=== PATIENT | female | born 1955 | race Caucasian/White ===

== ENCOUNTER 2019-07-07 22:50 | Inpatient (IN) | payer OTHER ==
[~2019-07-07] VITALS: Ht 157.5 cm; Wt 88.5 kg
[2019-07-07 23:10] VITALS: BP 159/90
--- NOTE | 2019-07-07 23:10 | NUR ---
TO BED # 01 AMBULATORY
[2019-07-07] MEDS ORDERED: NACL 0.9% 1,000 ML IV ONE (23:50)
[2019-07-07] MEDS ORDERED: MORPHINE SULFATE 4 MG/ML SYR IVP ONE (23:50)
[2019-07-07] MEDS ORDERED: ONDANSETRON 4 MG/2 ML VIAL IVP ONE (23:50)
--- NOTE | 2019-07-07 23:55 | NUR ---
PT TAKEN TO CT
--- NOTE | 2019-07-08 00:20 | NUR ---
PT BACK FROM CT
[2019-07-08 00:25] LABS: APPEARANCE,URINE HAZY (CLEAR); BILIRUBIN,URINE 1+ (NEGATIVE); BLOOD, URINE NEGATIVE (NEGATIVE); COLOR,URINE YELLOW (YELLOW); LEUKOCYTE ESTERASE ,URINE NEGATIVE (NEGATIVE); NITRITE, URINE POSITIVE (NEGATIVE); UGLUCOSE 3+ (NEGATIVE)
[2019-07-08 00:25] LABS: BASOPHILS # (AUTO) 0.1 K/uL (0.00-0.22); BASOPHILS % (AUTO) 0.5 % (0.0-2.0); EOSINOPHILS # (AUTO) 0.1 K/uL (0-0.4); EOSINOPHILS % (AUTO) 0.6 % (0.0-4.0); HEMATOCRIT 42.1 % (36-48); HEMOGLOBIN 14.4 g/dL (12.0-16.0); LYMPHOCYTES % (AUTO) 17.9 % (20.5-51.1); MEAN CORPUSCULAR HEMOGLOBIN 31 pg (27-31); MEAN CORPUSCULAR HGB CONC 34 g/dL (33-37); MEAN CORPUSCULAR VOLUME 90.6 fL (80-94); MONOCYTES # (AUTO) 0.4 K/uL (0.8-1.0); MONOCYTES % (AUTO) 3.4 % (1.7-9.3); NEUTROPHILS # (AUTO) 8.4 K/uL (1.8-7.7); NEUTROPHILS % (AUTO) 77.6 % (42.2-75.2); PLATELET COUNT (AUTO) 268 K/uL (140-450); RED BLOOD CELL COUNT(AUTO) 4.65 MIL/uL (4.20-5.40); RED CELL DISTRIBUTION WIDTH 12.9 % (11.6-13.7); WHITE BLOOD COUNT (AUTO) 10.9 K/uL (4.8-10.8)
--- NOTE | 2019-07-08 00:25 | NUR ---
63/F PRESENTS TO ED, C/O PRESSURE-LIKE BL UPPER ABD PAIN, X3 DAYS WORSENING TODAY. REPORTS N/V X8 TODAY. DENIES CHANGES IN BM OR FEVER. PT AWAKE AND ALERT, SKIN NORMAL COLOR WARM AND DRY, RR EVEN AND UNLABORED. LUNG SOUNDS CLEAR BL. HR EVEN AND REGULAR. BS ACTIVE X4, ABD SOFT ROUND TENDER ON UPPER ABD ONLY. HX DM, HLD, GERD, CHOLECYSTECTOMY DENIES RX
[2019-07-08 00:35] LABS: RBC,URINE 0-5 /HPF (0-5)
[2019-07-08 00:36] LABS: ANION GAP 15.4 (8-16); CARBON DIOXIDE 27.8 mmol/L (21-32); CREATININE 0.8 mg/dL (0.6-1.3); POTASSIUM 4.2 mmol/L (3.5-5.1)
[2019-07-08 00:41] LABS: ALBUMIN 4.1 g/dL (3.4-5.0)
--- NOTE | 2019-07-08 01:00 | NUR ---
PT STATES PAIN RELIEF AND DENIES NAUSEA. VSS. WILL CONTINUE TO MONITOR.
[2019-07-08] MEDS ORDERED: cefTRIAXone 1,000 MG VIAL ONE (01:41)
--- NOTE | 2019-07-08 02:00 | NUR ---
PT RESTING IN BED WITH EYES CLOSED, EASILY ARROUSABLE. WILL CONTINUE TO MONITOR.
--- NOTE | 2019-07-08 02:35 | NUR ---
RECEIVED BEDSIDE REPORT FROM STEPHANIE WALLACE. PT IS AAOX4. RESPIRATIONS ARE EQUAL AND UNLABORED. LUNG SOUNDS ARE CLEAR. SKIN IS INTACT. C/C ABD PAIN X1 DAY. N/V X2 DAYS. IV ON L AC 20G. PT COMING FROM HOME IS AMBULATORY. ORDER TO KEEP NPO. WILL GIVE ICE CHIPS PER REQUEST. MRSA SWAB OBTAINED. DX OBSTRUCTIVE JAUNDICE. NO EDEMA NOTED. RECEIVED ROCEPHIN FOR UTI. IVF PER ORDERS. VS: 116/66 HR 81 97%RA 97.6 RR 16 PAIN TOLERABLE. ORIENTED PT TO ROOM,STAFF,VISITING HOURS. CALL LIGHT IS WITHIN REACH. WILL CONTINUE TO MONITOR.
--- NOTE | 2019-07-08 02:40 | NUR ---
Patient will be admitted to care of DR. PARHAM. Admited to MED/SURG. Will go to [id number]. Belongings list completed. Report to MADISON LENNON.
--- NOTE | 2019-07-08 02:40 | NUR ---
TRANSFER OF CARE AND REPORT GIVEN TO MADISON LENONN
[2019-07-08] MEDS ORDERED: METF500T PO (02:58)
[2019-07-08 03:00] VITALS: BP 116/66
[2019-07-08] MEDS ORDERED: LEVO0.114 PO (03:00)
[2019-07-08] MEDS ORDERED: NOVR SUBQ (03:01)
[2019-07-08] MEDS ORDERED: SLIDE SUBQ (03:01)
--- NOTE | 2019-07-08 03:10 | NUR ---
DR YOUNGER IS AT BEDSIDE EXPLAINING POC. NO S/S OF DISTRESS. CALL LIGHT IS WITHIN REACH.
[2019-07-08] MEDS: NACL 0.9% 1,000 ML IV SCH ×2 (03:18→19:40)
[2019-07-08 03:22] LABS: BARBITURATE, URINE NEG. ng/ml (NEG <=200); BENZODIAZEPINE, URINE NEG. ng/mL (NEG <=200); CANNABINOID, URINE NEG. ng/mL (NEG <=50); COCAINE, URINE NEG. ng/mL (NEG <=300); OPIATE, URINE NEG. ng/mL (NEG <=2000); PHENCYCLIDINE SCREEN,URINE NEG. ng/mL (NEG <=25)
[2019-07-08 03:33] LABS: FREE T4 (FREE THYROXINE) 0.84 ng/dL (0.76-1.46); PHOSPHORUS 3.9 mg/dL (2.5-4.9); THYROID STIMULATING HORMONE 19.84 uIU/mL (0.34-3.74)
[2019-07-08 03:34] LABS: MAGNESIUM 1.7 mg/dL (1.8-2.4)
[2019-07-08] MEDS ORDERED: DEXTROSE 50% 50 ML SYR IVP PRN (03:45)
[2019-07-08 03:58] LABS: PROTHROMBIN TIME 9.2 secs (10.8-13.4)
[2019-07-08] MEDS ORDERED: MAG SULF 2000 MG/WATER PREMIX 50 ML IV SCH (04:30)
--- NOTE | 2019-07-08 05:00 | NUR ---
PATIENT IS SLEEPING COMFORTABLY IN BED. CHEST RISE AND FALL. MG RIDER NOW INFUSING PER ORDERS. CALL LIGHT IS WITHIN REACH.
[2019-07-08] MEDS: LEVOTHYROXINE 0.112 MG TAB PO SCH (06:02)
[2019-07-08] MEDS: HYDROcodone/APAP 7.5/325 MG 1 TAB PO PRN ×3 (06:05→23:50)
--- NOTE | 2019-07-08 06:05 | NUR ---
ADMINISTERED NORCO FOR ABD PAIN. BLOOD SUGAR 213 PT IS NPO. WILL HOLD INSULIN AND CHECK AGAIN AT AFTERNOON.SAFETY MEASURES ARE IN PLACE.
[2019-07-08] MEDS: BLOOD GLUCOSE MONITORING 1 DEV DEV FS SCH ×4 (06:20→21:20)
--- NOTE | 2019-07-08 07:30 | NUR ---
GAVE BEDSIDE REPORT TO DAY RN. PT ENDORSED IN STABLE CONDITION.
--- NOTE | 2019-07-08 07:35 | NUR ---
RECEIVED PT FROM SPOTTER DRIVER NURSECITLALLI, PT IS AWAKE AND ULTRASOUND OF THE ABDOMEN COMPLETE, SIDE RAISL UP JACK CALL LIGHT WITHIN REACH, IV LINE ON THE LEFT AC G. 20 WITH NS INFUSING AT 60ML/HR, ON ROOM AIR, AOX4, PT DENIES PAIN AND NO SIGN OF DISTRESS NOTED AND WILL CONTIN TO MONITOR PT.
[2019-07-08 08:00] VITALS: BP 115/71
[2019-07-08] MEDS: LACTOBACILLUS RHAMNOSUS GG 1 EACH CAP PO SCH (08:25)
[2019-07-08] MEDS: metFORMIN 500 MG TAB PO SCH ×2 (08:25→17:33)
--- NOTE | 2019-07-08 08:30 | NUR ---
PT IS AWAKE AND ALERT. METFORMIN, LACTOBACILLUS, AND HEPARIN GIVEN. PT. PLT 268. PT. TOLERATED WELL. MEDICATION EDUCATION ON PURPOSE AND SIDE EFFECTS. PT. VERBALIZES UNDERSTANDING. CALL LIGHT WITHIN REACH. PT INSTRUCTED TO UTILIZE CALL LIGHT WHEN ASSISTANCE IS NEEDED. BED IN LOW POSITION. SIDE RAILS UP X3
[2019-07-08 08:55] LABS: HEMATOCRIT 40.8 % (36-48); HEMOGLOBIN 13.8 g/dL (12.0-16.0); MEAN CORPUSCULAR HEMOGLOBIN 31 pg (27-31); MEAN CORPUSCULAR HGB CONC 34 g/dL (33-37); MEAN CORPUSCULAR VOLUME 91.1 fL (80-94); PLATELET COUNT (AUTO) 239 K/uL (140-450); RED BLOOD CELL COUNT(AUTO) 4.48 MIL/uL (4.20-5.40); RED CELL DISTRIBUTION WIDTH 12.6 % (11.6-13.7); WHITE BLOOD COUNT (AUTO) 15.9 K/uL (4.8-10.8)
[2019-07-08 09:36] LABS: ANION GAP 15.9 (8-16); CARBON DIOXIDE 25.1 mmol/L (21-32); CREATININE 0.7 mg/dL (0.6-1.3)
[2019-07-08 09:54] LABS: CHOL/HDL RATIO 10.9 (1-4.5)
[2019-07-08 10:56] LABS: LYMPHOCYTES % (MANUAL) 5 % (20-46)
--- NOTE | 2019-07-08 11:15 | NUR ---
BLOOD GLUCOSE CHECK DONE TO PT AND IS 159, INSULIN COVERAGE WILL BE GIVEN BASED ON THE SLIDING SCALE.
--- NOTE | 2019-07-08 12:50 | NUR ---
PT IS ON BED RESTING. BS 159. GIVEN 2 UNITS OF INSULIN. EDUCATED ON PURPOSE AND SIDE EFFECTS. PT. VERBALIZES UNDERSTANDING. PT. TOLERATED WELL. FAMILY AT BEDSIDE. BED IN LOW POSITION. CALL LIGHT WITHIN REACH. INSTRUCTED PT TO UTILIZE CALL LIGHT IF ANY ASSISTANCE IS NEEDED.
[2019-07-08] MEDS: INSULIN LISPRO SLIDING SCALE 100 UNITS/ML VIAL SUBQ PRN ×3 (12:52→21:25)
[2019-07-08 16:10] VITALS: BP 140/83
--- NOTE | 2019-07-08 16:14 | NUR ---
INSULIN 4 UNITS WAS GIVEN TO PT FOR BLOOD GLUCOSE OF 237
[2019-07-08] MEDS: ONDANSETRON 4 MG/2 ML VIAL IM/IVP PRN ×2 (16:21→23:50)
[2019-07-08] MEDS: ACETAMINOPHEN 325 MG TAB PO PRN (16:22)
--- NOTE | 2019-07-08 16:22 | NUR ---
PT IS AWAKE AND LYING ON THE BED. C/O HEADACHE AND NAUSEA, TYLENOL AND ZOFRAN WERE GIVEN AND TOLERATED IT. WILL MONITOR PT.
--- NOTE | 2019-07-08 17:35 | NUR ---
PT IS AWAKE, LYING ON BED EATING DINNER. GIVEN METFORMIN. EDUCATION ON PURPOSE AND SIDE EFFECTS. PT. VERBALIZES UNDERSTANDING BED IN LOW POSITION. CALL LIGHT WITHIN REACH. NO SIGNS OF DISTRESS.
--- NOTE | 2019-07-08 19:26 | NUR ---
PT IS SITTING ON BED. NORCO IS GIVEN. PAIN 7/10 ABDOMEN AREA. PT EDUCATION ON PURPOSE AND SIDE EFFECTS. PT. VERBALIZES UNDERSTANDING. BED IN LOW POSITION. CALL LIGHT WITHIN REACH. WILL REASSESS PAIN
--- NOTE | 2019-07-08 19:35 | NUR ---
PT IS LYING IN BED. IN STABLE CONDITION. PT IS ENDORSED TO PM SHIFT RN FOR CONTINUITY OF CARE
--- NOTE | 2019-07-08 19:36 | NUR ---
RECEIVED BEDSIDE REPORT FROM DAY SHIFT NURSE. PT IS AWAKE AND ABLE TO MAKE NEEDS KNOWN. NO SOB NOTED ON ROOM AIR. C/O PAIN BUT PAIN MED TAKEN 10MIN AGO. WILL REASSESS PAIN. IV LINE ON THE LEFT AC G. 20 WITH NS INFUSING AT 60ML/HR, SKIN INTACT, WARM AND DRY TO TOUCH. BED IN LOW POSITION, CALL LIGHT WITHIN REACH.
--- NOTE | 2019-07-08 21:25 | NUR ---
GIVEN HEPARIN MD ORDERED. BS CHECKED, 197, GIVEN INSULIN MD ORDERED. PT TOLERATED WELL.
--- NOTE | 2019-07-08 23:50 | NUR ---
PT C/O 6 ABD PAIN, GIVEN NORCO MD ORDERED. PT TOLERATED WELL. WILL CONTINUE TO MONITOR.
[2019-07-09] VITALS: BP 142/66
[2019-07-09] MEDS: MORPHINE SULFATE 2 MG/ML SYR IVP PRN ×2 (02:08→08:33)
--- NOTE | 2019-07-09 02:08 | NUR ---
PT C/O 03/07 ABD PAIN, GIVEN MORPHINE MD ORDERED. PT TOLERATED WELL.
--- NOTE | 2019-07-09 05:06 | NUR ---
PT C/O 02/05 ABD PAIN, GIVEN NORCO MD ORDERED. PT TOLERATED WELL.
[2019-07-09] MEDS: HYDROcodone/APAP 7.5/325 MG 1 TAB PO PRN (05:07)
[2019-07-09] MEDS: BLOOD GLUCOSE MONITORING 1 DEV DEV FS SCH ×4 (05:45→20:18)
[2019-07-09] MEDS: LEVOTHYROXINE 0.112 MG TAB PO SCH (05:47)
[2019-07-09] MEDS: INSULIN LISPRO SLIDING SCALE 100 UNITS/ML VIAL SUBQ PRN ×4 (05:48→20:26)
--- NOTE | 2019-07-09 07:10 | NUR ---
ENDORSED PT TO DAY SHIFT NURSE. PT IN STABLE CONDITION.
[2019-07-09 07:28] LABS: BASOPHILS % (AUTO) 0.3 % (0.0-2.0); EOSINOPHILS % (AUTO) 0.1 % (0.0-4.0); HEMATOCRIT 40.8 % (36-48); HEMOGLOBIN 14.1 g/dL (12.0-16.0); LYMPHOCYTES # (AUTO) 1.3 K/uL (2.5-16.5); LYMPHOCYTES % (AUTO) 12.3 % (20.5-51.1); MEAN CORPUSCULAR HEMOGLOBIN 32 pg (27-31); MEAN CORPUSCULAR HGB CONC 35 g/dL (33-37); MEAN CORPUSCULAR VOLUME 91.5 fL (80-94); MONOCYTES # (AUTO) 0.5 K/uL (0.8-1.0); MONOCYTES % (AUTO) 4.4 % (1.7-9.3); NEUTROPHILS % (AUTO) 82.9 % (42.2-75.2); PLATELET COUNT (AUTO) 217 K/uL (140-450); RED BLOOD CELL COUNT(AUTO) 4.46 MIL/uL (4.20-5.40); RED CELL DISTRIBUTION WIDTH 12.8 % (11.6-13.7); WHITE BLOOD COUNT (AUTO) 10.8 K/uL (4.8-10.8)
[2019-07-09 07:36] LABS: ANION GAP 14.8 (8-16); CARBON DIOXIDE 26.2 mmol/L (21-32); CREATININE 0.6 mg/dL (0.6-1.3)
[2019-07-09 07:52] LABS: MAGNESIUM 1.7 mg/dL (1.8-2.4); PHOSPHORUS 3.1 mg/dL (2.5-4.9)
[2019-07-09] MEDS: metFORMIN 500 MG TAB PO SCH ×2 (08:00→16:14)
--- NOTE | 2019-07-09 08:31 | NUR ---
PATIENT HAS BEEN SCREENED AND CATEGORIZED HIGH NUTRITION RISK. PATIENT WILL BE SEEN WITHIN 1-2 DAYS OF ADMISSION. 07/09/[address]
[2019-07-09 08:55] VITALS: BP 147/70
[2019-07-09] MEDS: LACTOBACILLUS RHAMNOSUS GG 1 EACH CAP PO SCH (09:00)
--- NOTE | 2019-07-09 10:07 | NUR ---
Solar Sales Ambassador Assessment/Discharge Plan Name: Tia Tabares Home Relationship: daughter Pre-Admission Living Arrangements: Lives with Other Other: Tia Tabares Prior ADL Independent Current Home Health Name/Tel: N/A Current DME/02 Name/Tel: blood glucose monitor Current Hospice Name/Tel: N/A Current Dialysis Name/Tel: N/A Healthcare Decision Maker: Patient Advance Directive No Information Taught: Advance Directive Tentative Discharge Plan Summary: Patient is a 63 year old female with history of hypothyroidism, cholecystectomy in October 2017. I met with patient at bedside. Patient alert and oriented x4. Patient speaks Irish. Patient lives at home with her daughter Tia Tabares and plans to return home upon discharge. Patient does not have a pcp. She use to have [employer] coverage and she planning to enroll with [facility] again. She is planning to ask [facility] to help her find pcp once she enrolls. She takes medication for depression. She reports having hx of depression, she stated she no longer feels depressed but takes medication anyways. Patient is independent with ADLs. She drives to grocery store. She denied alcohol/substance abuse. She also denied hx of mental health. Solar Sales Ambassador and/or Substation Operator will follow up as needed. Signature: CADEN Dodson Date: Jul 10, 2019
--- NOTE | 2019-07-09 11:00 | NUR ---
PT TAKEN OFF THE UNIT FOR PROCEDURE.
[2019-07-09] MEDS ORDERED: MIDAZOLAM 2 MG/2 ML VIAL ONE (11:01)
[2019-07-09] MEDS ORDERED: fentaNYL 0.05 MG/ML VIAL ONE (11:02)
[2019-07-09] MEDS ORDERED: PROPOFOL 200 MG/20 ML VIAL IV ONE (11:05)
[2019-07-09] MEDS ORDERED: HYDROmorphone 1 MG/ML AMP IVP PRN (11:40)
[2019-07-09] MEDS ORDERED: ONDANSETRON 4 MG/2 ML VIAL IVP PRN (11:40)
[2019-07-09] MEDS ORDERED: LACTATED RINGERS 1,000 ML IV SCH (11:40)
[2019-07-09] MEDS ORDERED: MEPERIDINE 25 MG/ML SYR IVP PRN (11:40)
[2019-07-09] MEDS ORDERED: diphenhydrAMINE 50 MG/ML VIAL IVP PRN (11:40)
[2019-07-09] MEDS ORDERED: BLOOD GLUCOSE MONITORING 1 DEV DEV FS SCH (12:00)
--- NOTE | 2019-07-09 12:30 | NUR ---
PT ARRIVED BACK ON THE UNIT. POST OP VITALS SHEET STARTED. PT AWAKE AND ALERT PT APPEARS STABLE AND IN NO APPARENT DISTRESS. CONNECTED PT TO IV. PT STATING WELL WITHOUT SUPPLEMENTAL 02. WILL CONTINUE TO MONITOR
[2019-07-09 12:32] LABS: HEPATITIS A ANTIBODY IGM Negative (Negative); HEPATITIS B CORE AB TOTAL Negative (Negative); HEPATITIS B SURFACE ANTIBODY Reactive (.); HEPATITIS B SURFACE ANTIGEN Negative (Negative)
[2019-07-09] MEDS: NACL 0.9% 1,000 ML IV SCH ×2 (12:53→20:30)
--- NOTE | 2019-07-09 13:29 | NUR ---
07/09/19 RD INITIAL ASSESSMENT COMPLETED PLEASE REFER TO NUTRITION ASSESSMENT UNDER CARE ACTIVITY FOR ESTIMATED NUTRITIONAL NEEDS. 1. CONTINUE TO ADVANCE DIET TO FULL LIQUID [facility] AND LOW FAT DIET TOLERATED 3. RD OFFERED NUTRITION EDUCATION FOR DIABETES, PT DECLINED AT MOMENT 4. RD TO FOLLOW-UP 3-5 DAYS, MODERATE RISK [address]
--- NOTE | 2019-07-09 15:43 | NUR ---
FREQUENT ROUNDING ON PT PT APPEARS STABLE AND IN NO APPARENT DISTRESS ALL SAFETY MEASURES ARE IN PLACE AND WILL CONTINUE TO MONITOR
[2019-07-09 16:45] VITALS: BP 115/62
[2019-07-09] MEDS ORDERED: MAG SULF 2000 MG/WATER PREMIX 50 ML IV SCH (17:00)
--- NOTE | 2019-07-09 17:45 | NUR ---
FREQUENT ROUNDING ON PT PT APPEARS STABLE AND IN NO APPARENT DISTRESS. ALL SAFETY MEASURES ARE IN PLACE WILL CONTINUE TO MONITOR.
--- NOTE | 2019-07-09 19:27 | NUR ---
ENDORSED PT TO PM RN PT AWAKE IN BED ALL SAFETY MEASURES ARE IN PLACE
--- NOTE | 2019-07-09 19:30 | NUR ---
RECEIVED PT FROM DAY SHIFT NURSE PT IS AAOX4 AMBULATORY S/P ERCP IV ON LEFT HAND INFUSING WELL, NOT DISTRESS NOTES AT THIS TIME INITIAL ASSESSMENT DONE
[2019-07-09] MEDS: ACETAMINOPHEN 325 MG TAB PO PRN (20:19)
--- NOTE | 2019-07-09 22:00 | NUR ---
AFTER PAIN MEDIC GIVEN PT IS SLEEPING WELL QUIET
[2019-07-10] VITALS: BP 120/72
--- NOTE | 2019-07-10 02:00 | NUR ---
PT SLEEPING WELL NOT DISTRESS NOTED
--- NOTE | 2019-07-10 04:00 | NUR ---
SPONGE BATH GIVEN LINEN CHANGED REMAINSTABLE
[2019-07-10 05:50] LABS: ALBUMIN 3.3 g/dL (3.4-5.0); ANION GAP 13.1 (8-16); CARBON DIOXIDE 26.7 mmol/L (21-32); CREATININE 0.7 mg/dL (0.6-1.3); MAGNESIUM 1.7 mg/dL (1.8-2.4); POTASSIUM 3.8 mmol/L (3.5-5.1); TOTAL BILIRUBIN 3.2 mg/dL (0.0-1.0)
[2019-07-10] MEDS ORDERED: LEVOTHYROXINE 0.075 MG TAB PO SCH (06:30)
[2019-07-10] MEDS ORDERED: LEVOTHYROXINE 0.025 MG, LEVOTHYROXINE 0.1 MG PO SCH ×2 (06:30)
[2019-07-10] MEDS ORDERED: MAG SULF 2000 MG/WATER PREMIX 100 ML IV SCH (06:30)
[2019-07-10] MEDS: BLOOD GLUCOSE MONITORING 1 DEV DEV FS SCH (06:34)
[2019-07-10 06:40] LABS: BASOPHILS # (AUTO) 0.1 K/uL (0.00-0.22); BASOPHILS % (AUTO) 0.6 % (0.0-2.0); EOSINOPHILS # (AUTO) 0.1 K/uL (0-0.4); EOSINOPHILS % (AUTO) 0.9 % (0.0-4.0); HEMOGLOBIN 13.6 g/dL (12.0-16.0); LYMPHOCYTES # (AUTO) 2.7 K/uL (2.5-16.5); LYMPHOCYTES % (AUTO) 31.3 % (20.5-51.1); MEAN CORPUSCULAR HEMOGLOBIN 32 pg (27-31); MEAN CORPUSCULAR HGB CONC 34 g/dL (33-37); MEAN CORPUSCULAR VOLUME 92.6 fL (80-94); MONOCYTES # (AUTO) 0.4 K/uL (0.8-1.0); MONOCYTES % (AUTO) 4.2 % (1.7-9.3); NEUTROPHILS # (AUTO) 5.4 K/uL (1.8-7.7); PLATELET COUNT (AUTO) 248 K/uL (140-450); RED BLOOD CELL COUNT(AUTO) 4.32 MIL/uL (4.20-5.40); WHITE BLOOD COUNT (AUTO) 8.5 K/uL (4.8-10.8)
[2019-07-10] MEDS: INSULIN LISPRO SLIDING SCALE 100 UNITS/ML VIAL SUBQ PRN (07:00)
--- NOTE | 2019-07-10 07:03 | NUR ---
BLOOD SUGAR TEST 236 COVERAGEWITH4 UNIS SUBQ HUMALOG FOLLOW PROTOCLOL
--- NOTE | 2019-07-10 07:30 | NUR ---
RECEIVED BEDSIDE REPORT FROM PREFORMS LAMINATOR NURSE FOR CONTINUITY OF CARE. PATIENT IS AWAKE AND AMBULATING IN HER ROOM AT THIS TIME. PATIENT IS AAOX4. RESPIRATION EVEN AND UNLABORED ON RA. DENIED PAIN, DIZZINESS AND SOB. NO SIGNS OF DISTRESS NOTED. IV CLEAN AND INTACT, INFUSING PER MD ORDER. SKIN CLEAN AND DRY. PATIENT IS ABLE TO AMBULATE AND CONTINENT. DISCUSSED PLAN OF CARE WITH PATIENT AND PATIENT VERBALIZED UNDERSTANDING. SAFETY MEASURES IN PLACE. BED IN LOW POSITION AND CALL LIGHT WITHIN REACH. INSTRUCTED PATIENT TO USE THE CALL LIGHT FOR ANY ASSISTANCE AND PATIENT WAS AWARE.
[2019-07-10 08:00] VITALS: BP 130/86
--- NOTE | 2019-07-10 08:00 | NUR ---
INFORMED PATIENT THAT SHE WILL BE DISCHARGE FROM THE HOSPITAL TODAY, PATIENT WAS AWARE AND SAID "OK, I WILL CALL MY DAUGHTER TO PICK ME UP. I WILL FIND OUT WHAT TIME SHE IS ABLE TO COME, SHE LIVES NEARBY." PATIENT IS EATING HER BREAKFAST ON BED AT THIS TIME. NO SIGNS OF DISTRESS NOTED. SAFETY MEASURES IN PLACE.
[2019-07-10] MEDS ORDERED: INFLUENZA VACCINE QUAD 0.5 ML SYR IMVAC PRN (08:05)
--- NOTE | 2019-07-10 08:28 | NUR ---
DR MIGUEL IS TALKING TO PATIENT AT BEDSIDE. NO SIGNS OF DISTRESS NOTED.
[2019-07-10] MEDS ORDERED: METF500T PO (08:32)
[2019-07-10] MEDS ORDERED: LEVO0.124 PO (08:32)
[2019-07-10] MEDS: metFORMIN 500 MG TAB PO SCH (08:38)
[2019-07-10] MEDS: LACTOBACILLUS RHAMNOSUS GG 1 EACH CAP PO SCH (08:38)
--- NOTE | 2019-07-10 08:39 | NUR ---
ADMINISTERED MEDS PER MD ORDER, MEDS EDUCATION PROVIDED TO PATIENT AND PATIENT VERBALIZED UNDERSTANDING. PATIENT AWAKE AND WATCHING TV AT THIS TIME. DENIED PAIN, SOB AND DIZZINESS. AWAITING FOR DAUGHTER TO ARRIVE FOR DISCHARGE. NO SIGNS OF DISTRESS NOTED. SAFETY MEASURES IN PLACE. BED IN LOW POSITION AND CALL LIGHT WITHIN REACH. INSTRUCTED PATIENT TO USE THE CALL LIGHT FOR ANY ASSISTANCE AND PATIENT WAS AWARE.
[2019-07-10] MEDS ORDERED: CEPH500C16 PO (08:51)
--- NOTE | 2019-07-10 09:43 | NUR ---
ASSESSED PATIENT FOR ANY ALLERGEN, PATIENT DENIED ALLERGY TO EGG, BANANA, KIWI, AVOCADO. PATIENT STATED " I HAVE FLU VACCINE BEFORE, EVERY YEAR. NOTHING HAPPEN TO ME." FLU VACCINE EDUCATION PROVIDED. ADMINISTERED FLU VACCINE VIA IM ON LEFT DELTOID, PATIENT TOLERATED WELL. NO SIGNS OF DISTRESS NOTED. AWAITING FOR FAMILY FOR DC.
--- NOTE | 2019-07-10 10:00 | NUR ---
DISCHARGE INSTRUCTION PROVIDED TO PATIENT AT BEDSIDE. EDUCATED PATIENT ON MD FOLLOW UP, MEDICATIONS REGIMEN, SIDE EFFECTS, DISEASE MANAGEMENT, AND DIET. ANSWERED ALL PATIENT'S QUESTIONS AND PATIENT VERBALIZED UNDERSTANDING. REMOVED ALL ARM BANDS AND DC ALL IV, NO BLEEDING AT IV SITED. PATIENT CHECKED ALL THE CABINETS AND TOOK ALL HER BELONGINGS. FLU VACCINE GIVEN AND IMMUNIZATION YELLOW CARD PROVIDED. PATIENT AWARE THAT HER PRESCRIPTION SENT TO HER PREFERRED PHARMACY [facility]. PATIENT IS GOING TO DISCHARGE AT THIS TIME ACCOMPANIED WITH HER SISTER TAMI. PATIENT IS IN STABLE CONDITION.
== END 2019-07-10 10:00 | disposition home or self-care (01) | DRG 445 ==
LOC: MED 22:50 → MTU 07-08 01:59
PROVIDERS: ADMIT General Practice; ATTEND General Practice
PROC: 0FC98ZZ Extirpation of Matter from Common Bile Duct, Via Natural or Artificial Opening Endoscopic (ICD-10-PCS; principal; 2019-07-08)
PROC: BF101ZZ Fluoroscopy of Bile Ducts using Low Osmolar Contrast (ICD-10-PCS; 2019-07-08)
DX: K80.51 Calculus of bile duct without cholangitis or cholecystitis with obstruction (principal); N12 Tubulo-interstitial nephritis, not specified as acute or chronic; E87.1 Hypo-osmolality and hyponatremia; N30.90 Cystitis, unspecified without hematuria; E66.9 Obesity, unspecified; E03.9 Hypothyroidism, unspecified; E11.9 Type 2 diabetes mellitus without complications; G89.29 Other chronic pain; I10 Essential (primary) hypertension; E83.42 Hypomagnesemia; D72.829 Elevated white blood cell count, unspecified; K76.0 Fatty (change of) liver, not elsewhere classified; Z90.710 Acquired absence of both cervix and uterus; Z90.49 Acquired absence of other specified parts of digestive tract; Z68.35 Body mass index [BMI] 35.0-35.9, adult
CPT/HCPCS: 36415; 71045; 74330; 76700; 77003; 80048; 80053; 80305; 81001; 82140; 82150; 82948; 83036; 83605; 83690; 83735; 83880; 84100; 84439; 84443; 85025; 85610; 85730; 86704; 86706; 86708; 86709; 86803; 87040; 87081; 87086; 87186; 87340; 93005; 96361; 96365; 96375; 99285; C1769; C1773; J0696; J1644; J2250; J2270; J2405; J2704; J3010; J3475; J7030; J7060; Q0092

== ENCOUNTER 2023-01-10 13:45 | Emergency (ER) | payer MEDICARE, OTHER ==
[~2023-01-10] VITALS: Ht 157.5 cm; Wt 105.2 kg
[~2023-01-10 13:45] MED LIST: CEPH500C16 PO; LEVO0.124 PO; METF-346 PO; SLIDE SUBQ
[2023-01-10 14:27] VITALS: BP 130/80
--- NOTE | 2023-01-10 14:32 | NUR ---
AMB. TO BED 12. NO ACUTE DISTRESS
[2023-01-10] MEDS ORDERED: MORPHINE SULFATE 4 MG/ML SYR IVP ONE (14:45)
[2023-01-10] MEDS ORDERED: ONDANSETRON 4 MG/2 ML VIAL IVP ONE (14:45)
[2023-01-10] MEDS ORDERED: NACL 0.9% 1,000 ML IV ONE (14:45)
[2023-01-10 15:15] LABS: BASOPHILS # (AUTO) 0.1 K/uL (0.00-0.22); BASOPHILS % (AUTO) 0.7 % (0.0-2.0); EOSINOPHILS # (AUTO) 0.2 K/uL (0-0.4); EOSINOPHILS % (AUTO) 1.6 % (0.0-4.0); HEMATOCRIT 40.5 % (36-48); HEMOGLOBIN 14.1 g/dL (12.0-16.0); LYMPHOCYTES # (AUTO) 3.7 K/uL (2.5-16.5); MEAN CORPUSCULAR HEMOGLOBIN 31 pg (27-31); MEAN CORPUSCULAR HGB CONC 35 g/dL (33-37); MEAN CORPUSCULAR VOLUME 87.4 fL (80-94); MONOCYTES # (AUTO) 0.5 K/uL (0.8-1.0); MONOCYTES % (AUTO) 4.8 % (1.7-9.3); NEUTROPHILS % (AUTO) 60.9 % (42.2-75.2); PLATELET COUNT (AUTO) 259 K/uL (140-450); RED BLOOD CELL COUNT(AUTO) 4.64 MIL/uL (4.20-5.40); RED CELL DISTRIBUTION WIDTH 12.9 % (11.6-13.7); WHITE BLOOD COUNT (AUTO) 11.5 K/uL (4.8-10.8)
[2023-01-10 15:33] LABS: ALBUMIN 3.8 g/dL (3.4-5.0); ANION GAP 9.7 (8-16); CARBON DIOXIDE 29.2 mmol/L (21-32); CREATININE 0.8 mg/dL (0.6-1.3); POTASSIUM 3.9 mmol/L (3.5-5.1); TOTAL BILIRUBIN 0.5 mg/dL (0.0-1.0)
[2023-01-10] MEDS ORDERED: ONDANSETRON 4 MG/2 ML VIAL ONE (16:40)
--- NOTE | 2023-01-10 16:44 | NUR ---
PATIENT WHEELED TO CT SCAN ON [facility] WITH ELA TEACHER
[2023-01-10] MEDS ORDERED: MORPHINE SULFATE 4 MG/ML SYR ONE (17:07)
--- NOTE | 2023-01-10 19:29 | NUR ---
Assumed care of patient, awake at this time, daughter by bedside. Deneis any pain or discomfort.
[2023-01-10 19:35] LABS: BILIRUBIN,URINE NEGATIVE (NEGATIVE); BLOOD, URINE TRACE-I (NEGATIVE); LEUKOCYTE ESTERASE ,URINE NEGATIVE (NEGATIVE); NITRITE, URINE NEGATIVE (NEGATIVE); UGLUCOSE NEGATIVE (NEGATIVE)
--- NOTE | 2023-01-10 19:37 | NUR ---
Patient to be transferred to [facility]. Receiving facility has accepting physician and available space. ER physician has signed transfer form. Patient or responsible alliance party has agreed to transfer and signed form. Patient belongings inventoried and will be sent with patient. Copy of nursing notes, lab reports, EKG, Physicians Orders and X-rays to be sent with patient. Report called to Donald WALLACE at receiving facility. [facility] ambulance service has been called for transfer. ETA is 2014.
[2023-01-10 19:51] LABS: APPEARANCE,URINE CLEAR (CLEAR); COLOR,URINE YELLOW (YELLOW)
[2023-01-10 20:05] LABS: RBC,URINE 0-5 /HPF (0-5)
[2023-01-10 20:06] LABS: YEAST,URINE Few /HPF (None Seen)
--- NOTE | 2023-01-10 20:15 | NUR ---
Pt c/o dizziness, accucheck was done and results were 89. ERMD made aware and received instruction to give juice. Pt with no c/o nausea or episodes of vomiting or abdominal pain at this time.
[2023-01-10 20:20] VITALS: BP 110/58
--- NOTE | 2023-01-10 20:20 | NUR ---
[facility] arrived to coal picker patient for transportation to [facility]. Pt awake alert and responsive at this time denies any pain or discomfort.
== END 2023-01-10 20:20 | disposition short-term general hospital (02) ==
LOC: MED 13:45
DX: K85.90 Acute pancreatitis without necrosis or infection, unspecified (principal); E11.9 Type 2 diabetes mellitus without complications; E03.9 Hypothyroidism, unspecified; Z79.899 Other long term (current) drug therapy; Z79.4 Long term (current) use of insulin; Z90.49 Acquired absence of other specified parts of digestive tract; Z90.710 Acquired absence of both cervix and uterus
CPT/HCPCS: 36415; 71045; 74177; 76705; 80053; 81001; 83605; 83690; 85025; 87040; 87086; 93005; 96361; 96374; 96375; 99285; J2270; J2405; J7030; Q0092; Q9967